=== PATIENT | female | born 1955 | race Two or more races ===

== ENCOUNTER 2024-10-12 09:28 | Outpatient (CLI) | payer OTHER | END 2024-10-12 09:29 | disposition home or self-care (01) | LOC: NUCLEAR 09:28 | PROVIDERS: ATTEND Specialist | DX: I87.2 Venous insufficiency (chronic) (peripheral) (principal) ==

== ENCOUNTER → 2024-10-15 08:18 | Outpatient (CLI) | payer OTHER | END | disposition home or self-care (01) | LOC: NUCLEAR 08:18 | PROVIDERS: ATTEND Specialist | DX: I73.9 Peripheral vascular disease, unspecified (principal) ==